=== PATIENT | female | born 1995 | race Caucasian/White ===

== ENCOUNTER 2021-02-24 15:25 | Emergency (ER) | payer OTHER, SELFPAY ==
[2021-02-24 15:30] VITALS: BP 146/89; PULSE 101; RESP 16; TEMP 36.8; O2SAT 100
--- NOTE | 2021-02-24 15:31 | ED.GENADULT ---
HPI - General Adult General Chief complaint: Upper Respiratory Infection Stated complaint: sore throat Time Seen by Provider: 02/24/21 15:31 Source: patient Mode of arrival: ambulatory Limitations: no limitations History of Present Illness HPI narrative: 25-year-old female patient presents to the [facility] with complaints of sore throat for the past 3 days. Patient states she typically does not get sore throats due to the fact that she has had her tonsils removed. Patient states she does take a sinus pill all year-round to help with seasonal allergies. Denies fevers, body aches or chills. Denies any ear pain, runny nose or stuffy nose. Related Data Home Medications Medication Instructions Recorded Confirmed Orilissa 150 mg PO DAILY 09/23/19 02/24/21 levocetirizine [Xyzal] 5 mg PO DAILY 09/23/19 02/24/21 norethindrone (contraceptive) 0.35 mg PO DAILY 02/24/21 02/24/21 [Incassia] Allergies Allergy/AdvReac Type Severity Reaction Status Date / Time No Known Allergies Allergy Verified 02/24/21 15:34 Review of Systems Review of Systems: Narrative: CONSTITUTIONAL: Denies fever, chills, or sweats. EYES: Denies visual changes, redness, or discharge. ENT: Denies rhinorrhea, congestion, positive sore throat, denies otalgia. CARDIOVASCULAR: Denies chest pain, palpitations, or edema. RESPIRATORY: Denies cough or dyspnea. GASTROINTESTINAL: Denies abdominal pain, nausea, vomiting, or diarrhea. GENITOURINARY: Denies dysuria or hematuria. SKIN: Denies rash or itching. MUSCULOSKELETAL: Denies back pain, joint pain, or myalgia. NEUROLOGIC: Denies headache, numbness, or weakness. PSYCHIATRIC: Denies anxiety or depression. [facility] Past Medical History Medical History (Updated 02/24/21 @ 15:48 by REESE Larose) Anemia ON IRON SUPPLEMENT Anxiety Depression Endometriosis IBS (irritable bowel syndrome) Migraine Obesity Surgical History Surgical History H/O colonoscopy History of tonsillectomy [place] teeth removed Family History Family History Mother Anxiety Depression Anemia Sibling Anxiety Depression Grandparent SOB (shortness of breath) Cataract Alzheimer disease Arthritis Social History Social History Smoking status: Never smoker Comments At the time of my signature I agree with nursing past medical history, surgical, social, and family history. There is no relevant family history pertinent to the presenting complaint. Exam Narrative: Exam Narrative: GENERAL: Well-appearing, well-nourished, and in no acute distress. HEAD: Normocephalic, atraumatic. EYES: PERRLA and EOMI. ENT: Nares with erythema and edema noted bilaterally with the right nare swollen shut, no rhinorrhea or epistaxis. Mucous membranes moist. Bilateral TMs are clear no erythema or foreign bodies to the canal. Posterior pharynx with some postnasal drip present but no erythema, tonsillar edema, exudates or lesions present. NECK: Supple. No lymphadenopathy CHEST: Clear to auscultation. No respiratory distress. HEART: Regular rate and rhythm. No murmur heard. Normal peripheral pulses. ABDOMEN: Soft, nontender, nondistended, normal active bowel sounds. EXTREMITIES: Normal range of motion. No edema. SKIN: Warm, dry, no rash. NEURO: No focal deficits. Alert and oriented x3. Course Vital Signs Vital signs: Vital Signs Temperature 36.8 C 02/24/21 15:30 Pulse Rate 101 H 02/24/21 15:30 Respiratory Rate 16 02/24/21 15:30 Blood Pressure 146/89 H 02/24/21 15:30 Pulse Oximetry 100 02/24/21 15:30 Temperature 36.8 C 02/24/21 15:30 Pulse Rate 101 H 02/24/21 15:30 Respiratory Rate 16 02/24/21 15:30 Blood Pressure 146/89 H 02/24/21 15:30 Pulse Oximetry 100 02/24/21 15:30 Vital signs reviewed The patient has been informed that they ma
== END 2021-02-24 15:53 | disposition home or self-care (01) ==
PROVIDERS: Emergency Provider Nurse Practitioner Family; PCP Family Medicine
DX: J02.9 Acute pharyngitis, unspecified (principal); J30.9 Allergic rhinitis, unspecified; N80.9 Endometriosis, unspecified
CPT/HCPCS: 87081; 87880; 99213; G0463